=== PATIENT | female | born 1995 | race Caucasian/White ===

== ENCOUNTER 2017-08-27 09:00 | Outpatient (CLI) | payer BC, OTHER ==
[2017-08-27 09:29] VITALS: BP 131/66; PULSE 67; RESP 18; TEMP 96.8
--- NOTE | 2017-08-30 08:45 | P.MSEPDOC ---
Presenting Problems - Arrival Data Date of Arrival on Unit: 08/27/17 Time of Arrival on Unit: 09:00 Mode of Transport: Wheelchair - Complaint OB-Reason for Admission/Chief Complaint: Possible Onset of Labor, Vaginal Bleeding Comment: some vaginal bleeding since 0600 and pressure Medical History - Information : 1 Para: 0 Term: 0 : 0 Abortions: Spontaneous or Elective: 0 Number of Living Children: 0 - Gestational Age Gestational Age by BERLIN (wks/days): 35 Weeks and 5 Days - History Complications: Hx. Substance Abuse Comment: hx of THC use, last use in Mar Review of Systems - Review of Systems Constitutional: No problems Breast: No problems ENT: No problems Cardiovascular: No problems Respiratory: No problems Gastrointestinal: No problems Genitourinary: No problems Musculoskeletal: No problems Neurological: No problems Skin: No problems Vital Signs - Temperature Temperature: 96.8 F - Pulse Right Brachial Pulse Rate: 67 Pulse Assessment Method: Automatic Cuff - Respirations Respiratory Rate: 18 Oxygen Delivery Method: Room Air - Blood Pressure Right Arm Blood Pressure: 131/66 Blood Pressure Mean: 87 Blood Pressure Source: Automatic Cuff Medical Screen Scoring (Pre) - Cervical Exam Dilation: 1-3 cm = 1 Effacement: More than 50% = 2 Membranes: Intact - Uterine Contractions Frequency: N/A Duration: N/A Intensity: N/A - Maternal Vital Signs Maternal Temperature: N/A Maternal Blood Pressure: N/A Signs of Preeclampsia: N/A Maternal Respirations: N/A - Pain Assessment Pain Location and Character: Perineal Pain Scale Used: Numeric (1 - 10) Pain Intensity: 5 Pain Description: *Acute, Pressure Pain Radiation Location: none Pain Duration: 2 Pain Duration Units: Hours Pain Behavior: Vocalization Pain Aggravating Factors: Contractions - Maternal Trauma Maternal Trauma: N/A - Assessment Baseline FHR: 110 Heart Rate - NICHD Category: Category I (Normal) = 0 NST: Reactive Position: N/A Station: N/A - Total Score Total Score (Pre): 3 - Level of Risk Level of Risk: Low (0-5) Physician Notification (Pre) - Physician Notified Physician Notified Date: 08/27/17 Physician Notified Time: 09:39 Physician/Practitioner Notifed:: Dr. Miranda Spoke With: Dr. Miranda - Notification Comment Comment: check cervical exam in an hour, if no change, may discharge home Disposition - Disposition OB Disposition: Discharge to home, Written follow up instructions reviewed Discharge Date: 08/27/17 Discharge Time: 10:23 I agree with the RN Medical Screening Exam: Yes Risk & Benefit of care provided described in d/c instruction: Yes Diagnosis: FALSE LABOR BEFORE 37 COMPLETED WEEKS OF GEST, THIRD TRI
== END 2017-08-27 10:25 | disposition home or self-care (01) ==
LOC: FBPOP 09:00
PROVIDERS: ATTEND Obstetrics & Gynecology
DX: O47.03 False labor before 37 completed weeks of gestation, third trimester (principal); Z3A.35 35 weeks gestation of pregnancy
CPT/HCPCS: 59025; 99213

== ENCOUNTER 2017-08-28 02:38 | Inpatient (IN) | payer BC, OTHER ==
[2017-08-28] MEDS ORDERED: LIDOCAINE 1% (PF) 10 MG/ML (30 ML SDV) SQ PRN (02:49)
[2017-08-28] MEDS ORDERED: TERBUTALINE 1 MG/ML VIAL SQ PRN (02:49)
[2017-08-28] MEDS ORDERED: OXYTOCIN 10 UNIT/ML 1 ML VIAL IM PRN (02:49)
[2017-08-28] MEDS ORDERED: METHYLERGONOVINE 0.2 MG/ML 1 ML AMP IM PRN (02:49)
[2017-08-28] MEDS ORDERED: AMPICILLIN 2,000 MG in SODIUM CHLORIDE 0.9% 100 ML IVPB STA (02:49)
[2017-08-28] MEDS ORDERED: CARBOPROST TROMETHAMINE 250 MCG/ML 1 ML AMP IM PRN (02:49)
[2017-08-28] MEDS ORDERED: LACTATED RINGERS 1,000 ML IV SCH (03:00)
[2017-08-28] MEDS ORDERED: OXYTOCIN 20 UNITS/1000 ML NS 1,000 ML IV SCH (03:00)
[2017-08-28 03:11] LABS: Basophils % (A) 0 %; Eosinophils # (A) 0.2 k/uL (0-0.7); Eosinophils % (A) 1 %; HGB 12.9 gm/dL (11.4-16.0); Lymphocytes # (A) 1.8 k/uL (1.0-4.8); Lymphocytes % (A) 8 %; MCH 27.1 pg (25.0-35.0); MCHC 33.2 g/dL (31.0-37.0); MCV 81.7 fL (80.0-100.0); Mean Platelet Volume 8.6; Monocytes % (A) 4 %; Neutrophils # (A) 20.3 k/uL (1.3-7.7); Neutrophils % (A) 86 %; Platelet Count 233 k/uL (150-450); RBC 4.78 m/uL (3.80-5.40); RDW 13.9 % (11.5-15.5); WBC 23.5 k/uL (3.8-10.6)
[2017-08-28] MEDS ORDERED: BUPIVACAINE (PF) 0.25% 30 ML VIAL ONE (03:30)
[2017-08-28] MEDS ORDERED: fentaNYL (PF) 50 MCG/ML 5 ML AMP ONE (03:30)
[2017-08-28] MEDS ORDERED: SODIUM CHLORIDE 0.9% 100 ML BAG ONE (03:30)
[2017-08-28] MEDS: LACTATED RINGERS 1,000 ML IV SCH ×3 (03:44→20:11)
[2017-08-28 04:01] VITALS: BMI 29.9
[2017-08-28 05:02] LABS: Appearance,Urine Clear (Clear); Bilirubin,Urine Negative (Negative); Blood,Urine Negative (Negative); Color,Urine Light Yellow; Glucose,Urine (UA) Negative (Negative); Ketones,Urine 1+ (Negative); Leukocyte Esterase,Urine Negative (Negative); Nitrite,Urine Negative (Negative); Protein,Urine Negative (Negative); Specific Gravity,Urine 1.007 (1.001-1.035); Urobilinogen,Urine <2.0 mg/dL (<2.0)
[2017-08-28 05:11] LABS: Amphetamine Screen,Urine Not Detected (NotDetected); Barbiturate Screen,Urine Not Detected (NotDetected); Benzodiazepines Screen,Urine Not Detected (NotDetected); Cocaine Screen,Urine Not Detected (NotDetected); Methadone Screen, Urine Not Detected (NotDetected); Opiate Screen,Urine Not Detected (NotDetected); Oxycodone Screen, Urine Not Detected (NotDetected); Phencyclidine Screen,Urine Not Detected (NotDetected); Tricyclic Antidepressant,Urine Not Detected (NotDetected); Urn Cannabinoid Scrn Detected (NotDetected)
[2017-08-28] MEDS ORDERED: HYDROCORTISONE 2.5% RECTAL CREAM 30 GM TUBE RECTAL PRN (07:23)
[2017-08-28] MEDS ORDERED: WITCH HAZEL 1 EACH MED..PAD TOPICAL PRN (07:23)
[2017-08-28] MEDS ORDERED: ZOLPIDEM 5 MG TAB PO PRN (07:23)
[2017-08-28] MEDS ORDERED: ACETAMINOPHEN TAB 325 MG TAB PO PRN (07:23)
[2017-08-28] MEDS ORDERED: LANOLIN CREAM 5 GM TUBE TOPICAL PRN (07:23)
[2017-08-28] MEDS ORDERED: BENZOCAINE/MENTHOL SPRAY 1 GM/SPRAY AEROSOL TOPICAL PRN (07:23)
[2017-08-28] MEDS ORDERED: diphenhydrAMINE 25 MG CAP PO PRN (07:23)
[2017-08-28] MEDS ORDERED: SIMETHICONE 80 MG CHEWABLE PO PRN (07:23)
[2017-08-28] MEDS ORDERED: Acetaminophen-Codeine 300-30mg TAB PO PRN ×2 (07:23)
[2017-08-28] MEDS ORDERED: diphenhydrAMINE 50 MG CAP PO PRN (07:23)
[2017-08-28] MEDS ORDERED: diphenhydrAMINE 50 MG/ML 1 ML VIAL IVP PRN ×2 (07:23)
--- NOTE | 2017-08-28 07:25 | P.HPOB ---
History of Present Illness H&P Date: 08/28/17 Chief Complaint: Intrauterine 35 weeks: Active labor Elizabeth is a 22-year-old at 35 weeks 6 days gestation who ryes in active labor. She was seen in labor and delivery yesterday with similar complaints of contractions but had made no cervical change was discharged. Her last night at approximately 9:30 she began having an increase in contractions and began having more pain as the contractions have actually subsided today. At some point she began leaking clear fluid and an Essure was positive on arrival. When she arrived she was dilated to 4 cm 100% effaced -2 station. She was admitted for active labor. Her course otherwise was unremarkable other than late care. Pertinent labs O+ blood type are tented up and was negative, rubella immune, hepatitis B surface antigen and RPR were negative. GBS is unknown. On physical exam vital signs are stable afebrile. Heart regular, lungs clear, extremities without pain. Osteopathic exams unremarkable. On evaluating her, she was dilated to 9 cm heart percent effaced and 0 station. Artificial rupture membranes was performed at that point and clear fluid is noted. heart tones are reactive in the 140s. Assessment intrauterine at 35 and 6. Plan expect spontaneous vaginal delivery and epidural is been used for analgesia. Past Medical History Past Medical History: No Reported History History of Any Multi-Drug Resistant Organisms: None Reported Past Surgical History: No Surgical Hx Reported Past Anesthesia/Blood Transfusion Reactions: No Reported Reaction Past Psychological History: No Psychological Hx Reported Smoking Status: Former smoker Past Alcohol Use History: Rare Past Drug Use History: Marijuana - Past Family History Mother Additional Family Medical History / Comment(s): heart arrythmia Medications and Allergies Home Medications Medication Instructions Recorded Confirmed Type Pnv No.95/Ferrous Fum/Folic AC 1 each PO DAILY 08/27/17 08/28/17 History [ Multivitamin Tablet] Allergies Allergy/AdvReac Type Severity Reaction Status Date / Time No Known Allergies Allergy Verified 08/28/17 02:42 Exam Osteopathic Statement: *. No significant issues noted on an osteopathic structural exam other than those noted in the History and Physical/Consult. - Vital Signs Vital signs: Vital Signs Temp Pulse Resp BP Pulse Ox 08/28/17 04:14 97.4 F L 114 H 18 140/87 100 Intake and Output 08/27/17 08/28/1708/28/18 22:59 06:59 14:59 Intake Total 2000 Output Total 1000 Balance 1000 Intake: IV 1000 Invasive Line 1 1000 Intake, IV Titration 1000 Amount Lactated Ringers 1,000 ml 1000 @ 125 mls/hr IV .Q8H CLAY Rx#:[id number] Output: Urine 1000 Straight 1000 Other: Weight 74.389 kg Results Result Diagrams: 08/28/17 03:05 Abnormal Lab Results - Last 24 Hours (Table) 08/28/17 08/28/17 Range/Units 03:05 04:50 WBC 23.5 H (3.8-10.6) k/uL Neutrophils # 20.3 H (1.3-7.7) k/uL Urine Ketones 1+ H (Negative) U Marijuana (THC) Screen Detected H (NotDetected)
--- NOTE | 2017-08-28 07:27 | P.PROBDLV ---
Vaginal Delivery Note - . Vaginal Delivery Note: Patient progressed complete and pushing with spontaneous vaginal delivery of a viable female over a second-degree midline laceration. Falling deliver the head shoulders were easily delivered followed by the remainder the baby. Baby was then placed on mother's abdomen where the umbilical cord was allowed to pulsate with nursery present for 30 seconds prior to clamping and cutting. Once this was accomplished placenta was delivered intact and Pitocin was added to the IV. Second-degree midline laceration was then repaired in usual fashion with 3-0 Vicryl following 1% Xylocaine for analgesia. 1 avulsion on the right side had one stitch placed to reapproximate the skin to help decrease burning on urination however it was not bleeding. scores were 8 and 9 at one and 5 minutes respectively and the weight was 4 lbs. 7 oz. Baby B only did receive 1 dose of antibiotics as she was cleared shortly before the second dose was due.
[2017-08-28] MEDS ORDERED: INFLUENZA VACCINE (6 MOS+) 60 MCG/0.5 ML SYRINGE IM ONE (08:04)
[2017-08-28] MEDS ORDERED: DIPH,PERTUS(ACELL)TETVAC-LF 0.5 ML VIAL IM ONE (08:04)
[2017-08-28 12:05] LABS: HIV AB P24 Non-Reactive (Non-Reactive); HIV P24 AG Non-Reactive (Non-Reactive)
[2017-08-28] MEDS ORDERED: ONDANSETRON 4 MG TAB PO PRN (13:35)
[2017-08-28] MEDS ORDERED: BUPIVACAINE (PF) 0.25% 25 ML, fentaNYL (PF) 200 MCG in SODIUM CHLORIDE 0.9% 71 ML EPIDURAL ONE (15:41)
[2017-08-28] MEDS: IBUPROFEN 600 MG TAB PO PRN ×2 (16:09→23:51)
[2017-08-28] MEDS: SENNOSIDES-DOCUSATE SODIUM 1 EACH TAB PO SCH ×2 (19:33→20:12)
[2017-08-28] MEDS: AMPICILLIN 1,000 MG in SODIUM CHLORIDE 0.9% 50 ML IVPB SCH ×2 (20:10→20:11)
[2017-08-29] MEDS: IBUPROFEN 600 MG TAB PO PRN ×3 (07:47→23:59)
[2017-08-29] MEDS: SENNOSIDES-DOCUSATE SODIUM 1 EACH TAB PO SCH ×2 (07:48→22:20)
--- NOTE | 2017-08-29 16:21 | P.PN ---
Progress Note - Text Progress Note Date: 08/29/17 Elizabeth seen and evaluated she is doing very well day 1. She is ambulating, voiding, she is tolerating her diet. She voices no complaints. Vital signs stable and afebrile. Assessment day 1. Plan continue current care.
[2017-08-30] MEDS: SENNOSIDES-DOCUSATE SODIUM 1 EACH TAB PO SCH (07:43)
[2017-08-30 07:45] VITALS: BP 121/70; PULSE 66; RESP 17; TEMP 98.4
--- NOTE | 2017-08-30 08:44 | P.MSEPDOC ---
Presenting Problems - Arrival Data Date of Arrival on Unit: 08/28/17 Time of Arrival on Unit: 02:46 - Complaint OB-Reason for Admission/Chief Complaint: Possible Onset of Labor, Rule Out SROM Comment: contractions and leaking fluid Medical History - Information : 1 Para: 0 Term: 0 : 0 Abortions: Spontaneous or Elective: 0 Number of Living Children: 0 - Gestational Age Gestational Age by BERLIN (wks/days): 36 Weeks and 0 Days - History Complications: Hx. Substance Abuse Comment: hx of THC Review of Systems - Review of Systems Constitutional: No problems Breast: No problems ENT: No problems Cardiovascular: No problems Respiratory: No problems Gastrointestinal: No problems Genitourinary: No problems Musculoskeletal: No problems Neurological: No problems Skin: No problems Vital Signs - Temperature Temperature: 98.4 F Temperature Source: Axillary - Pulse Right Brachial Pulse Rate: 66 Pulse Assessment Method: Automatic Cuff - Respirations Respiratory Rate: 17 Oxygen Delivery Method: Room Air O2 Sat by Pulse Oximetry: 100 - Blood Pressure Right Arm Blood Pressure: 121/70 Blood Pressure Mean: 87 Blood Pressure Source: Automatic Cuff Medical Screen Scoring (Pre) - Cervical Exam Dilation: 4-7 cm = 2 Effacement: More than 50% = 2 Membranes: Ruptured = 3 - Uterine Contractions Frequency: < 36 weeks = 6 Duration: N/A Intensity: N/A - Maternal Vital Signs Maternal Temperature: N/A Maternal Blood Pressure: N/A Signs of Preeclampsia: N/A Maternal Respirations: N/A - Pain Assessment Pain Scale Used: Numeric (1 - 10) Pain Intensity: 8 Pain Management Goal: 3 Pain Description: *Acute Pain Radiation Location: none Pain Frequency: Intermittent Pain Duration: 2 Pain Duration Units: Hours Pain Behavior: Agitated, Anxious, Crying, Fidgeting, Teary Eyed, Upset, Vocalization Pain Aggravating Factors: Contractions Pharmacological Interventions: Epidural - Maternal Trauma Maternal Trauma: N/A - Assessment Baseline FHR: 125 Heart Rate - NICHD Category: Category I (Normal) = 0 NST: Reactive Position: N/A Station: N/A - Total Score Total Score (Pre): 13 - Level of Risk Level of Risk: High (10+) Physician Notification (Pre) - Physician Notified Physician Notified Date: 08/28/17 Physician Notified Time: 02:50 Physician/Practitioner Notifed:: Dr. Miranda Spoke With: Dr. Miranda New Order Received: Yes - Notification Comment Comment: admit for labor Disposition - Disposition OB Disposition: Admit, LDRP Suite I agree with the RN Medical Screening Exam: Yes Risk & Benefit of care provided described in d/c instruction: Yes Diagnosis: RELATED CONDITIONS, UNSPECIFIED, THIRD TRIMESTER
--- NOTE | 2017-08-30 08:51 | P.DS ---
Providers Date of admission: 08/28/17 02:46 Expected date of discharge: 08/30/17 Attending physician: Jerald Miranda Primary care physician: Stated None Hospital Course: Elizabeth is doing very well day 2. She is ambulating, voiding, and she is tolerating her diet. She voices no complaints. Vital signs are stable and afebrile. Heart regular, lungs clear, extremities are without pain. Osteopathic exam is unremarkable. Abdomen is soft uterus is firm below the umbilicus and lochia is reported be light. Assessment day 2. Plan discharged home follow up with me in 6 weeks. Baby is still in special care nursery. She requests nothing for pain and is bottlefeeding. Discharge instructions were thoroughly reviewed. All questions are answered for her prior to her discharge. Patient Condition at Discharge: Good Plan - Discharge Summary New Discharge Prescriptions: No Action Pnv No.95/Ferrous Fum/Folic AC [ Multivitamin Tablet] 1 each PO DAILY Discharge Medication List Pnv No.95/Ferrous Fum/Folic AC [ Multivitamin Tablet] 1 each PO DAILY [History]
== END 2017-08-30 12:35 | disposition home or self-care (01) | DRG 775 ==
LOC: FBPOP 02:38 → 4FBP 02:46
PROVIDERS: ADMIT Obstetrics & Gynecology; ATTEND Obstetrics & Gynecology
PROC: 00HU33Z Insertion of Infusion Device into Spinal Canal, Percutaneous Approach (ICD-10-PCS; principal; 2017-08-28)
PROC: 3E0R3NZ Introduction of Analgesics, Hypnotics, Sedatives into Spinal Canal, Percutaneous Approach (ICD-10-PCS; principal; 2017-08-28)
PROC: 10E0XZZ Delivery of Products of Conception, External Approach (ICD-10-PCS; principal; 2017-08-28)
PROC: 0KQM0ZZ Repair Perineum Muscle, Open Approach (ICD-10-PCS; principal; 2017-08-28)
DX: O42.013 Preterm premature rupture of membranes, onset of labor within 24 hours of rupture, third trimester (principal); O70.1 Second degree perineal laceration during delivery; Z37.0 Single live birth; Z3A.35 35 weeks gestation of pregnancy; Z87.891 Personal history of nicotine dependence
CPT/HCPCS: 59025; 80306; 81003; 84112; 85025; 86762; 86780; 86850; 86900; 86901; 87340; 87390; 88307; 90686; 90715; 99213